=== PATIENT | male | born 1955 | race Caucasian/White ===

== ENCOUNTER 2020-06-10 11:47 | Outpatient (CLI) | payer MEDICARE | END 2020-06-10 11:48 | disposition home or self-care (01) | LOC: DTY/OP 11:47 | PROVIDERS: ATTEND Internal Medicine | DX: E11.9 Type 2 diabetes mellitus without complications (principal) | CPT/HCPCS: 97802 ==

== ENCOUNTER 2022-02-09 12:58 | Outpatient (CLI) | payer MEDICARE, OTHER | END 2022-02-09 12:59 | disposition home or self-care (01) | LOC: TBSIIMAG 12:58 | PROVIDERS: ATTEND Urology | DX: C61 Malignant neoplasm of prostate (principal) | CPT/HCPCS: 72197; 82565 ==

== ENCOUNTER 2022-02-11 10:14 | Outpatient (CLI) | payer OTHER | END 2022-02-11 10:15 | disposition home or self-care (01) | LOC: NM 10:14 | PROVIDERS: ATTEND Urology | DX: C61 Malignant neoplasm of prostate (principal) | CPT/HCPCS: 78306; A9503 ==